=== PATIENT | male | born 1935 | race Caucasian/White ===

== ENCOUNTER 2021-07-24 21:47 | Emergency (ER) | payer MEDICARE, BC ==
[~2021-07-24] VITALS: Ht 182.9 cm; Wt 74.8 kg
[2021-07-24 22:17] LABS: ABSOLUTE BASOPHILS 0.1 thou/uL (0.0-0.2); ABSOLUTE EOSINOPHILS 0.3 thou/uL (0.0-0.7); ABSOLUTE LYMPHOCYTES 1.2 thou/uL (0.8-5.3); ABSOLUTE MONOCYTES 0.4 thou/uL (0.0-1.2); BASOPHILS 1.1 %; EOSINOPHILS 4.6 %; HEMATOCRIT 39.1 % (42.0-52.0); LYMPHOCYTES 20.5 %; MCHC 33.2 g/dL (28.0-37.0); MCV 93.4 fL (80.0-100.0); MONOCYTES 6.8 %; MPV 9.6 fl. (7.2-11.1); NUCLEATED RBCS 0 /100WBC; PLATELET COUNT* 143 thou/uL (150-400); RBC 4.19 mil/uL (4.50-6.00); RDW-CV 14.1 % (10.5-14.5); WBC 5.9 thou/uL (4.0-11.0)
[2021-07-24 22:26] LABS: CALCIUM 8.5 mg/dL (8.5-10.1); CREATININE 2.1 mg/dL (0.6-1.3); POTASSIUM 4.5 mmol/L (3.5-5.1)
[2021-07-24] MEDS ORDERED: FUROSEMIDE 20 M20 MG PO (22:30)
[2021-07-24] MEDS ORDERED: MEMANTINE HCL5 MG PO (22:30)
[2021-07-24 22:31] LABS: ALBUMIN 3.5 g/dL (3.4-5.0); TOTAL BILIRUBIN 0.4 mg/dL (<0.1-1.0); TOTAL PROTEIN 7.2 g/dL (6.4-8.2)
[2021-07-24] MEDS ORDERED: FEBUXOSTAT40 MG PO (22:31)
[2021-07-24] MEDS ORDERED: ELIQUIS2.5 MG PO (22:31)
[2021-07-24] MEDS ORDERED: TOPROL XL50 MG PO (22:31)
[2021-07-24] MEDS ORDERED: ZOLOFT100 MG PO (22:32)
[2021-07-24] MEDS ORDERED: CALCITRIOL0.25 MCG PO (22:32)
[2021-07-24] MEDS ORDERED: SEROQUEL 25 MG25 MG PO (22:33)
[2021-07-24] MEDS ORDERED: ARICEPT10 M1 PO (22:33)
[2021-07-24 23:02] LABS: URINE BILIRUBIN NEGATIVE (Negative); URINE BLOOD NEGATIVE (Negative); URINE CLARITY CLEAR; URINE COLOR YELLOW; URINE GLUCOSE-RANDOM NEGATIVE (Negative); URINE KETONES NEGATIVE (Negative); URINE LEUKOCYTES-REFLEX NEGATIVE (Negative); URINE NITRITE-REFLEX NEGATIVE (Negative); URINE PROTEIN 1+ (Negative); URINE SPECIFIC GRAVITY 1.025 (1.005-1.030); URINE UROBILINOGEN 0.2 E.U./dl (0.2-1.0)
[2021-07-25 00:08] VITALS: BP 140/77
--- NOTE | 2021-07-25 11:41 | EKG ---
[place] [address] ELECTROCARDIOGRAM REPORT Name: DAREN MANZANO Room: [facility]#: [id number] Admission: 07/24/21 Attend Phys: Discharge: 07/25/21 Date of : 39 Date of Service: 07/24/212199 Report #: [id number] THIS REPORT FOR: //name// [facility] ED Test Date: 2021-07-24 Test Time: 22:00:26 Pat Name: DAREN MANZANO Department: Room: Gender: [employer]: [place] : [id number] Requested By: Areli Berger Order Number: [id number] MD: Jonh King Measurements Intervals [place] Rate: 76 P: NE: QRS: -19 QRSD: 100 T: -20 QT: 398 QTc: 448 Interpretive Statements Atrial fibrillation Paired ventricular premature complexes Borderline left axis deviation Anterior infarct, old Borderline repolarization abnormality Baseline wander in lead(s) II,III,aVL,aVF,V2 No previous ECG available for comparison Electronically Signed On 07-25-2021 11:41:18 [employer] by Jonh King [email or web address] <ELECTRONICALLY SIGNED> By: Jonh King MD, FACC 07/25/21 1141 99 99 Jonh King MD, FACC /EPI
== END 2021-07-25 00:10 | disposition home or self-care (01) ==
LOC: M.ERS 21:47
PROVIDERS: Personal Emergency Response Attendant
DX: F03.91 Unspecified dementia, unspecified severity, with behavioral disturbance (principal); Z88.2 Allergy status to sulfonamides; Z79.899 Other long term (current) drug therapy